=== PATIENT | female | born 1955 | race African-American/Black ===

== ENCOUNTER 2021-09-22 16:05 | Emergency (ER) | payer MEDICAID ==
[~2021-09-22] VITALS: Ht 162.6 cm; Wt 63.5 kg
[2021-09-22 16:19] VITALS: BP 136/81
--- NOTE | 2021-09-22 16:47 | NUR ---
PT AMBUALTED TO BED 4
--- NOTE | 2021-09-22 16:47 | NUR ---
ATTEMPTED TO OBTAIN UA FROM PATIENT, UNABLE TO OBTAIN AT THIS TIME. PROVIDED PT WITH WATER
[2021-09-22] MEDS ORDERED: LIDOCAINE 5% 1 EA PATCH TP SCH (17:05)
[2021-09-22] MEDS ORDERED: IBUPROFEN 600 MG TAB PO ONE (17:05)
[2021-09-22 18:44] VITALS: BP 119/59
[2021-09-22 21:04] LABS: APPEARANCE,URINE CLEAR (CLEAR); BILIRUBIN,URINE NEGATIVE (NEGATIVE); BLOOD, URINE TRACE-I (NEGATIVE); LEUKOCYTE ESTERASE ,URINE NEGATIVE (NEGATIVE); NITRITE, URINE NEGATIVE (NEGATIVE); UGLUCOSE NEGATIVE (NEGATIVE)
[2021-09-22 21:27] LABS: COLOR,URINE STRAW (YELLOW)
--- NOTE | 2021-09-22 21:30 | NUR ---
PREPARING FOR DISCHARGE. SPOKE WITH SON IN [place]. UNABLE TO PROVIDE TRANSPORTATION FOR PT BACK TO FACILITY./ JOSE MANUEL TO
[2021-09-22 21:33] LABS: RBC,URINE 0-5 /HPF (0-5); WBC,URINE 0-5 /HPF (0-5)
--- NOTE | 2021-09-22 22:15 | NUR ---
ATTEMNPTING TO [facility]CT [facility], NO ANSWER
--- NOTE | 2021-09-22 22:35 | NUR ---
taxi called. eta 1 hr
--- NOTE | 2021-09-23 03:39 | NUR ---
CONTINUES TO WAIT FOR TAXI
--- NOTE | 2021-09-23 05:57 | NUR ---
Patient discharged with v/s stable. Written and verbal after care instructions given and explained. Patient verbalized understanding. Ambulatory with steady gait. All questions addressed prior to discharge. Advised to follow up with PMD.
--- NOTE | 2021-09-23 05:57 | NUR ---
Patient will transfer back to facility via Taxi cab.
--- NOTE | 2021-09-23 06:01 | NUR ---
Called [phone] ([facility]) -no one garbage pick up man the phone.
== END 2021-09-23 05:57 | disposition home or self-care (01) ==
LOC: MED 16:05
DX: N81.89 Other female genital prolapse (principal); R82.71 Bacteriuria; G89.29 Other chronic pain; M54.50 Low back pain, unspecified; I10 Essential (primary) hypertension; F03.90 Unspecified dementia, unspecified severity, without behavioral disturbance, psychotic disturbance, mood disturbance, and anxiety
CPT/HCPCS: 81001; 87086; 87186; 99283

== ENCOUNTER 2021-10-12 16:11 | Emergency (ER) | payer MEDICAID ==
[~2021-10-12] VITALS: Ht 162.6 cm; Wt 61.7 kg
--- NOTE | 2021-10-12 16:11 | NUR ---
PATIENT BROUGHT IN VIA [facility] BY [address]
[2021-10-12 16:18] VITALS: BP 158/90
--- NOTE | 2021-10-12 16:24 | NUR ---
DR ROGERS AT BEDSIDE
[2021-10-12 17:06] VITALS: BP 158/90
== END 2021-10-12 17:06 | disposition home or self-care (01) ==
LOC: MED 16:11
DX: N81.4 Uterovaginal prolapse, unspecified (principal); I10 Essential (primary) hypertension; D64.9 Anemia, unspecified
CPT/HCPCS: 99284